=== PATIENT | male | born 1995 | race African-American/Black ===

== ENCOUNTER 2020-05-28 17:47 | Emergency (ER) | payer SELFPAY ==
[2020-05-28] MEDS ORDERED: AZITHROMYCIN 1 GM SUSP PACKET PO ONE (18:41)
[2020-05-28] MEDS ORDERED: CEFTRIAXONE INJ 250 MG VIAL IM ONE (18:41)
[2020-05-28] MEDS ORDERED: LIDOCAINE 1% INJ-PF (10 MG/ML) 30 ML SDV INJ ONE (18:41)
--- NOTE | 2020-05-28 18:47 | ER Document Report ---
HPI - HPI Time Seen by Provider: 05/28/20 18:40 Pain Level: Denies Notes: 25-year-old male presents emergency room for STD evaluation after he found out from his girlfriend that she tested positive with chlamydia. States he was last sexually active with her 2 weeks ago, does report burning with urination and dysuria. Denies ever having an STD prior. Denies any fevers or chills. Eating and drink without any issues. Denies fevers, chills, chest pain,palpitations, shortness of breath, dyspnea, nausea, vomiting, diarrhea, abdominal pain, hematuria,blurred vision, double vision, loss of vision, speech changes, LH, dizziness, syncope, headaches, wheezing, ST, URI, neck pain, weakness, bowel or bladder dysfunction, saddle anesthesia, numbness or tingling in bilateral upper or lower extremities equally, muscle paralysis, weakness in bilateral upper or lower extremities equally or rash. Denies IV drug use. MEDICATIONS: I agree with the patient medications as charted by the RN. ALLERGIES: I agree with the allergies as charted by the RN. PAST MEDICAL HISTORY/PAST SURGICAL HISTORY: Reviewed and agree as charted by RN. SOCIAL HISTORY: Reviewed and agree as charted by RN. FAMILY HISTORY: No significant familial comorbid conditions directly related to patient complaint EXAM: Reviewed vital signs as charted by RN. REVIEW OF SYSTEMS:reviewed vital signs by RN CONSTITUTIONAL : Denies fever, chills, or sweats. Denies recent illness. EENT: Denies eye, ear, throat, or mouth pain or symptoms. Denies nasal or sinus congestion or discharge. Denies throat, tongue, or mouth swelling or difficulty swallowing. CARDIOVASCULAR: Denies chest pain. Denies palpitations or racing or irregular heart beat. Denies ankle edema. RESPIRATORY: Denies cough, cold, or chest congestion. Denies shortness of breath, difficulty breathing, or wheezing. GASTROINTESTINAL: Denies abdominal pain or distention. Denies nausea, vomiting, or diarrhea. Denies blood in vomitus, stools, or per rectum. Denies black, tarry stools. Denies constipation. GENITOURINARY: Reports dysuria, painful urination. denies difficulty urinating, burning, frequency, blood in urine, or discharge. MUSCULOSKELETAL: Denies back or neck pain or stiffness. Denies joint pain or swelling. SKIN: Denies rash, lesions or sores. HEMATOLOGIC : Denies easy bruising or bleeding. LYMPHATIC: Denies swollen, enlarged glands. NEUROLOGICAL: Denies confusion or altered mental status. Denies passing out or loss of consciousness. Denies dizziness or lightheadedness. Denies headache. Denies weakness or paralysis or loss of use of either side. Denies problems with gait or speech. Denies sensory loss, numbness, or tingling. Denies seizures. PSYCHIATRIC: Denies anxiety or stress. Denies depression, suicidal ideation, or homicidal ideation. ALL OTHER SYSTEMS REVIEWED AND NEGATIVE. Dictation was performed using [employer] voice recognition software PHYSICAL EXAMINATION: GENERAL: Well-appearing, well-nourished and in no acute distress. HEAD: Atraumatic, normocephalic. EYES: Pupils equal round and reactive to light, extraocular movements intact, sclera anicteric, conjunctiva are normal. ENT: Nares patent, oropharynx clear without exudates. Moist mucous membranes. NECK: Normal range of motion, supple without lymphadenopathy LUNGS: Breath sounds clear to auscultation bilaterally and equal. No wheezes rales or rhonchi. HEART: Regular rate and rhythm without murmurs ABDOMEN: Soft, nontender, nondistended abdomen. No guarding, no rebound. No masses appreciated. :Pt Refused exam Musculoskeletal: Normal range of motion, no pitting or edema. No cyanosis. NEUROLOGICAL: Cranial nerves grossly intact. Normal speech, normal gait. Normal sensory, motor exams PSYCH: Normal mood, normal affect. SKIN: Warm, Dry, normal turgor, no rashes or lesions noted. Past Medical History - General Information source: Patient - Social History Smoking Status: Current Every Day Smoker Chew tobacco use (# tins/day): No Frequency of alcohol use: Social Drug Abuse: Marijuana Family History: Reviewed & Not Pertinent Vertical Provider Document - CONSTITUTIONAL Agree With Documented VS: Yes Exam Limitations: No Limitations General Appearance: WD/WN Course - Re-evaluation Re-evalutation: 05/28/20 18:47 Afebrile vital stable no distress. Nurses notes reviewed. Patient did give a clean and dirty urine. Since patient had been in contact with somebody who did test positive for chlamydia that he has been sexually active with as well as being symptomatic, patient treated with azithromycin 1 g and Rocephin 250 mg IM for treatment of chlamydia and gonorrhea. Do not engage in sexual intercourse for 7-10 days after treatment. Advised that partner needs to be treated as well so you are not reinfected. Pt verbalizes that understands the risks that come with having unprotected sex. discussed safe sex, using protection. pt was tx'd for G/C at this visit. advised to have protected sex always, go to [facility]CP of the [facility] for further blood testing for HIV, hepatitis C, etc. Pt verbalized understanding of these instructions and agreed with plan of care. - Vital Signs Vital signs: Temp Pulse Resp BP Pulse Ox 98.7 F 92 16 151/77 H 100 05/28/20 18:34 05/28/20 17:52 05/28/20 17:52 05/28/20 17:52 05/28/20 17:52 Discharge - Discharge Clinical Impression: STD exposure Condition: Stable Disposition: HOME, SELF-CARE Additional Instructions: You have been treated with azithromycin 1 g and Rocephin 250 mg IM for treatment of chlamydia and gonorrhea. Do not engage in sexual intercourse for 7- 10 days after treatement. discussed safe sex, using protection. pt was tx'd for G/C at this visit. Advised to have protected sex always, go to [facility]CP [facility] the [facility] for further blood testing for HIV, hepatitis C, etc. Return immediately for any new or worsening symptoms. Follow up with primary care provider, call tomorrow to make followup appointment. Referrals: TIA COMBS MD [ACTIVE STAFF] - Follow up as needed
[2020-05-28 19:06] VITALS: BP 119/64
[2020-05-28 19:30] LABS: APPEARANCE,URINE SLIGHTLY-CLOUDY; BILIRUBIN,URINE NEGATIVE (NEGATIVE); COLOR,URINE YELLOW; GLUCOSE, URINE NEGATIVE (NEGATIVE); KETONES,URINE NEGATIVE (NEGATIVE); LEUKOCYTE ESTERASE,URINE LARGE (NEGATIVE); NITRITE,URINE NEGATIVE (NEGATIVE); PROTEIN,URINE NEGATIVE (NEGATIVE); URINE SPECIFIC GRAVITY 1.018; UROBILINOGEN,URINE NEGATIVE mg/dL (<2.0)
[2020-05-28 20:40] LABS: CHLAM PCR DETECTED (NOT DETECT)
== END 2020-05-28 19:06 | disposition home or self-care (01) ==
LOC: ER 17:47
DX: Z20.2 Contact with and (suspected) exposure to infections with a predominantly sexual mode of transmission (principal); R30.0 Dysuria; F17.200 Nicotine dependence, unspecified, uncomplicated; F12.10 Cannabis abuse, uncomplicated
CPT/HCPCS: 99284; 96372; 81001; 87491; 87591; J3490; Q0144; J0696

== ENCOUNTER 2020-06-26 16:09 | Emergency (ER) | payer SELFPAY ==
[2020-06-26] MEDS ORDERED: CYCLOBENZAPRINE HCL 10 MG TABLET PO ONE (17:00)
--- NOTE | 2020-06-26 17:01 | ER Document Report ---
ED Medical Screen (RME) - General Chief Complaint: Leg Pain Stated Complaint: LEG PAIN Time Seen by Provider: 06/26/20 16:53 Information source: Patient Notes: She presents complaining of bilateral leg pain for the past 6 weeks. Patient states symptoms started after a road trip from [place] 2 months ago. Patient states his pain symptoms have worsened since last night. Patient complains of pain and swelling to the right leg. Patient states he feels palpable lumps to bilateral lower extremities. Patient denies any chest pain or shortness of breath. Patient denies any significant medical problems. I have greeted and performed a rapid initial assessment of this patient. A comprehensive ED assessment and evaluation of the patient, analysis of test results and completion of the medical decision making process will be conducted by additional ED providers. - Related Data Allergies/Adverse Reactions: azithromycin Adverse Reaction (Verified 05/28/20 18:37) Physical Exam - Vital signs Vitals: Temp Pulse Resp BP Pulse Ox 98.8 F 85 16 152/81 H 100 06/26/20 16:42 06/26/20 16:42 06/26/20 16:42 06/26/20 16:42 06/26/20 16:42 - Extremities General lower extremity: Tender - Bilateral lower extremity tenderness from mid thigh distally Course - Vital Signs Vital signs: Temp Pulse Resp BP Pulse Ox 98.8 F 85 16 152/81 H 100 06/26/20 16:42 06/26/20 16:42 06/26/20 16:42 06/26/20 16:42 06/26/20 16:42
[2020-06-26 17:33] LABS: ABSOLUTE EOSINOPHILS # (AUTO) 0.2 10^3/uL (0.0-0.6); ABSOLUTE LYMPHOCYTES (AUTO) 1.4 10^3/uL (0.5-4.7); ABSOLUTE MONOCYTES (AUTO) 0.6 10^3/uL (0.1-1.4); ABSOLUTE NEUT (AUTO) 5.8 10^3/uL (1.7-8.2); BASOPHILS % (AUTO) 0.5 % (0-2); HEMATOCRIT 43.2 % (37.9-51.0); LYMPHOCYTES % (AUTO) 17.7 % (13-45); MEAN CORPUSCULAR HEMOGLOBIN 30.7 pg (27.0-33.4); MEAN CORPUSCULAR HGB CONC 34.8 g/dL (32.0-36.0); MEAN CORPUSCULAR VOLUME 88 fl (80-97); MONOCYTES % (AUTO) 7.2 % (3-13); PLATELET COUNT 287 10^3/uL (150-450); RED CELL DISTRIBUTION WIDTH 13.9 % (11.5-14.0); SEGMENTED NEUTROPHILS % (AUTO) 71.6 % (42-78); TOTAL CELLS COUNTED % (AUTO) 100 %; WHITE BLOOD COUNT 8.1 10^3/uL (4.0-10.5)
[2020-06-26 17:52] LABS: ANION GAP 10 (5-19); BLOOD UREA NITROGEN 12 mg/dL (7-20); CALCIUM 10.1 mg/dL (8.4-10.2); CARBON DIOXIDE 31 mmol/L (22-30); CHLORIDE 98 mmol/L (98-107); CREATINE KINASE 338 U/L (55-170); GLUCOSE 96 mg/dL (75-110)
--- NOTE | 2020-06-26 18:58 | RADIOLOGY REPORT (SQ) ---
EXAM DESCRIPTION: VENOUS BILATERAL LOWER IMAGES COMPLETED DATE/TIME: 06/26/2020 6:46 pm REASON FOR STUDY: LE pain, swelling COMPARISON: None. TECHNIQUE: Dynamic and static soto scale and color images acquired of both lower extremity venous sy stems. Selected spectral images acquired with additional compression and augmentation maneuvers. Imag es stored on PACS. LIMITATIONS: None. FINDINGS: RIGHT LEG COMMON FEMORAL AND FEMORAL: Normal phasicity, compression and augmentation. No visualized echogenic m aterial on soto scale. No defects on color images. POPLITEAL: Normal compression and augmentation. No visualized echogenic material on soto scale. No de fects on color images. CALF VESSELS: Normal compression and augmentation. No visualized echogenic material on soto scale. No defects on color image. GSV AND SSV: Normal compression. No visualized echogenic material on soto scale. No defects on color images. ANY DEEP VENOUS INSUFFICIENCY: Not evaluated. ANY EVIDENCE OF POPLITEAL CYST: No. OTHER: No other significant finding. LEFT LEG COMMON FEMORAL AND FEMORAL: Normal phasicity, compression and augmentation. No visualized echogenic m aterial on soto scale. No defects on color images. POPLITEAL: Normal compression and augmentation. No visualized echogenic material on soto scale. No de fects on color images. CALF VESSELS: Normal compression and augmentation. No visualized echogenic material on soto scale. No defects on color images. GSV AND SSV: Normal compression. No visualized echogenic material on soto scale. No defects on color images. ANY DEEP VENOUS INSUFFICIENCY: Not evaluated. ANY EVIDENCE POPLITEAL CYST: No. OTHER: No other significant finding. IMPRESSION: NO EVIDENCE DVT OR SVT IN EITHER LEG. TECHNICAL DOCUMENTATION: JOB ID: [id number] [employer]- All Rights Reserved Reading location - IP/workstation name: [email or web address]
--- NOTE | 2020-06-26 21:16 | ER Document Report ---
ED General - General Chief Complaint: Leg Pain Stated Complaint: LEG PAIN Time Seen by Provider: 06/26/20 16:53 Mode of Arrival: Ambulatory Information source: Patient Notes: Patient is a healthy 25-year-old -[place] Citizen male who moved here from [place] about a month and half ago. States he has been having severe pain in his legs ever since. No chest pain or shortness of breath. No injury. Works in [employer]. States unable to do his job recently because of pain in his legs. - Related Data Allergies/Adverse Reactions: azithromycin Adverse Reaction (Verified 05/28/20 18:37) Past Medical History - General Information source: Patient - Social History Smoking Status: Current Every Day Smoker Family History: Reviewed & Not Pertinent Review of Systems - Review of Systems Notes: Constitutional: No fevers. No chills. EENT: No eye redness. No eye pain. No ear pain. No sore throat. Cardiovascular: No chest pain. No palpitations. Respiratory: No cough. No shortness of breath. No respiratory distress. Gastrointestinal: No abdominal pain. No nausea, vomiting, or diarrhea. Genitourinary: Atraumatic. No lesions. No pain. No discharge. Musculoskeletal: Positive for bilateral lower extremity pain Skin: No rash or lesions. Lymphatic: No swollen lymph nodes. Neurologic: No headache. No syncope. Psychiatric: No suicidal or homicidal ideation. Physical Exam - Vital signs Vitals: Temp Pulse Resp BP Pulse Ox 98.8 F 85 16 152/81 H 100 06/26/20 16:42 06/26/20 16:42 06/26/20 16:42 06/26/20 16:42 06/26/20 16:42 - Notes Notes: General: Well-developed, well-nourished. In no acute distress. Non-toxic a ppearing. Cardiac: Well-perfused. Regular rate and rhythm. No murmurs, rubs, or gallops. Pulmonary: No respiratory distress. No cyanosis. Bilateral lung fiels are clear to auscultation. Abdominal: Non-distended. Non-rigid. Bowels sounds are present in all four quadrants. No guarding or rebound. HEENT: Head is atraumatic. Conjunctivae not reddened. No tearing. PERRL. EOMI. Orbits atraumatic. No periorbital swelling or erythema. Oropharynx is without erythema, swelling, or exudates. Neck: Supple. No adenopathy. No meningismus. Dermatologic: Warm with good turgor. No rash. Atraumatic. Chest: Atraumatic. No chest wall tenderness to palpation. Musculoskeletal: Moves all extremities well. No range of motion deficits. no muscular or joint tenderness. No paraspinal muscle tenderness. no midline spinal tenderness or step-off. Bilateral lower extremities examined. No swelling. No redness. No lesions. Diffuse nonspecific tenderness. Distal neurovascular exam intact Genitourinary: Examination deferred Neurologic: No gross neurologic deficits. Psychiatric: Normal mood. Course - Re-evaluation Re-evalutation: 06/26/20 21:14 Reviewed labs. Reviewed ultrasound. Will treat symptomatically. - Vital Signs Vital signs: Temp Pulse Resp BP Pulse Ox 98.8 F 85 16 152/81 H 100 06/26/20 16:42 06/26/20 16:42 06/26/20 16:42 06/26/20 16:42 06/26/20 16:42 - Laboratory Result Diagrams: 06/26/20 17:05 06/26/20 17:05 Laboratory results interpreted by me: 06/26/20 17:05 Carbon Dioxide 31 H Creatine Kinase 338 H Discharge - Discharge Clinical Impression: Elevated blood pressure reading Leg pain Qualifiers: Laterality: bilateral Qualified Code(s): M79.604 - Pain in right leg; M79.605 - Pain in left leg Condition: Good Disposition: HOME, SELF-CARE Instructions: Myalagia (Muscle Pain) (OM) Prescriptions: Indomethacin [Indocin 25 Mg Capsule] 25 mg PO Q6HP PRN #20 capsule PRN Reason: Forms: Return to Work Referrals: GEOVANNY FOWLER DO [NO LOCAL MD] - Follow up as needed
[2020-06-26 21:33] VITALS: BP 132/79
== END 2020-06-26 21:32 | disposition home or self-care (01) ==
LOC: ER 16:09
DX: M79.604 Pain in right leg (principal); M79.605 Pain in left leg; R03.0 Elevated blood-pressure reading, without diagnosis of hypertension; F17.200 Nicotine dependence, unspecified, uncomplicated
CPT/HCPCS: 36415; 80048; 82550; 85025; 93970; 99285

== ENCOUNTER 2020-07-06 13:47 | Emergency (ER) | payer SELFPAY ==
[2020-07-06 13:53] VITALS: BP 129/74
--- NOTE | 2020-07-06 14:21 | ER Document Report ---
ED GI/ - General Chief Complaint: Penile Pain Stated Complaint: PENILE PAIN Time Seen by Provider: 07/06/20 14:13 Notes: CHIEF COMPLAINT: Penile lesions HPI: 25-year-old male presenting because he is concerned he still has an STD. He was treated for gonorrhea chlamydia per the records over 5 weeks ago. States he had tested positive for both chlamydia and gonorrhea, did receive Zithromax and Rocephin no longer has penile discharge. Has not been sexually active since being treated. He reports that he is circumcised. He reports that he is concerned about swelling in the area where he was circumcised. No dysuria no testicular pain ROS: See HPI - all other systems were reviewed and are otherwise negative Constitutional: no fever GI: no vomiting, no diarrhea, no abdominal pain : no dysuria Integumentary: + rash Allergy: no hives MEDICATIONS: I agree with the patient medications as charted by the RN. ALLERGIES: I agree with the allergies as charted by the RN. PAST MEDICAL HISTORY/PAST SURGICAL HISTORY: Reviewed and agree as charted by RN. SOCIAL HISTORY: Reviewed and agree as charted by RN. FAMILY HISTORY: No significant familial comorbid conditions directly related to patient complaint EXAM: Reviewed vital signs as charted by RN. CONSTITUTIONAL: Alert and oriented and responds appropriately to questions. Well-appearing; well-nourished HEAD: Normocephalic; atraumatic EYES: Conjunctivae clear, sclerae non-icteric ENT: normal nose; no rhinorrhea; moist mucous membranes NECK: Supple without meningismus CARD: symmetric distal pulses RESP: Normal chest excursion without splinting or tachypnea ABD/GI: Normal bowel sounds; non-distended; soft, non-tender, no rebound, no guarding; no palpable organomegaly or masses. : Circumcised male. No visible urethral discharge. No visible lesions. Testicles are descended and bilaterally nontender. No palpable masses. No inguinal or scrotal hernias. Patient has slight edema at the base of the circumcision area over the remnant of the foreskin without significant erythema. No blistering suggesting herpes BACK: The back appears normal and is non-tender to palpation, there is no CVA tenderness EXT: Normal ROM in all joints; no cyanosis, no effusions, no edema SKIN: Normal color for age and race; warm; dry; good turgor; no acute lesions noted NEURO: Moves all extremities equally; Motor and sensory function intact PSYCH: The patient's mood and manner are appropriate. Grooming and personal hygiene are appropriate. MDM: 25-year-old male with likely balanitis at the remnant of the foreskin. We will have him use Lotrisone cream and follow-up with the health department - Related Data Allergies/Adverse Reactions: No Known Allergies Allergy (Verified 07/06/20 14:19) Past Medical History - Social History Smoking Status: Unknown if Ever Smoked Family History: Reviewed & Not Pertinent Physical Exam - Vital signs Vitals: Temp Pulse Resp BP Pulse Ox 97.8 F 111 H 18 129/74 H 95 07/06/20 13:52 07/06/20 13:52 07/06/20 13:52 07/06/20 13:52 07/06/20 13:52 Course - Re-evaluation Re-evalutation: 07/06/20 14:20 Patient declines being retested for gonorrhea chlamydia stating that he feels that his symptoms have resolved - Vital Signs Vital signs: Temp Pulse Resp BP Pulse Ox 97.8 F 111 H 18 129/74 H 95 07/06/20 13:52 07/06/20 13:52 07/06/20 13:52 07/06/20 13:52 07/06/20 13:52 Discharge - Discharge Clinical Impression: Balanitis Condition: Stable Disposition: HOME, SELF-CARE Instructions: Jorge ([facility]) Additional Instructions: Use the cream as prescribed for 1 week, follow-up with your primary care provider or the health department for reevaluation Prescriptions: Clotrimazole/Betamethasone Dip [Lotrisone Cream 15 gm] 1 applic TP BID 7 Days #1 tube
== END 2020-07-06 14:19 | disposition home or self-care (01) ==
LOC: ER 13:47
DX: N48.1 Balanitis (principal)
CPT/HCPCS: 99283

== ENCOUNTER 2020-07-08 15:01 | Emergency (ER) | payer SELFPAY ==
--- NOTE | 2020-07-08 15:19 | ER Document Report ---
ED Medical Screen (RME) - General Chief Complaint: Abdominal Pain Stated Complaint: RIGHT LEG PAIN Time Seen by Provider: 07/08/20 15:13 Mode of Arrival: Wheelchair Information source: Patient Notes: 25-year-old presented to ED for complaint of pain from his right lower abdomen down to his foot. When I palpate his right lower abdomen he states it is extremely painful. He states this is been hurting off and on for a month. He states it also hurts in the leg and the knee and the foot. He denies any fever denies any nausea or vomiting. Patient is alert oriented respirations regular nonlabored speaking in full sentences. I have greeted and performed a rapid initial assessment of this patient. A comprehensive ED assessment and evaluation of the patient, analysis of test results and completion of medical decision making process will be conducted by an additional ED providers. - Related Data Allergies/Adverse Reactions: No Known Allergies Allergy (Verified 07/08/20 15:14) Past Medical History - Medical History Medical History: Negative - Past Medical History Cardiac Medical History: Reports: None Pulmonary Medical History: Reports: None EENT Medical History: Reports: None Endocrine Medical History: Reports: None Renal/ Medical History: Reports: None Malignancy Medical History: Reports None GI Medical History: Reports: None Musculoskeltal Medical History: Reports None Skin Medical History: Reports None Psychiatric Medical History: Reports: None Traumatic Medical History: Reports: None Infectious Medical History: Reports: None Surgical Hx: Negative Past Surgical History: Reports: None Physical Exam - Vital signs Vitals: Temp Pulse Resp BP Pulse Ox 99.2 F 100 18 145/85 H 100 07/08/20 15:07 07/08/20 15:07 07/08/20 15:07 07/08/20 15:07 07/08/20 15:07 Course - Vital Signs Vital signs: Temp Pulse Resp BP Pulse Ox 99.2 F 100 18 145/85 H 100 07/08/20 15:07 07/08/20 15:07 07/08/20 15:07 07/08/20 15:07 07/08/20 15:07
[2020-07-08 15:46] LABS: ABSOLUTE EOSINOPHILS # (AUTO) 0.1 10^3/uL (0.0-0.6); ABSOLUTE LYMPHOCYTES (AUTO) 1.3 10^3/uL (0.5-4.7); ABSOLUTE MONOCYTES (AUTO) 1.2 10^3/uL (0.1-1.4); ABSOLUTE NEUT (AUTO) 10.9 10^3/uL (1.7-8.2); BASOPHILS % (AUTO) 0.2 % (0-2); EOSINOPHILS % (AUTO) 0.8 % (0-6); HEMATOCRIT 43.2 % (37.9-51.0); HEMOGLOBIN 14.8 g/dL (13.5-17.0); LYMPHOCYTES % (AUTO) 9.7 % (13-45); MEAN CORPUSCULAR HEMOGLOBIN 29.9 pg (27.0-33.4); MEAN CORPUSCULAR HGB CONC 34.3 g/dL (32.0-36.0); MEAN CORPUSCULAR VOLUME 87 fl (80-97); MONOCYTES % (AUTO) 8.6 % (3-13); PLATELET COUNT 435 10^3/uL (150-450); RED BLOOD COUNT 4.95 10^6/uL (4.35-5.55); RED CELL DISTRIBUTION WIDTH 13.6 % (11.5-14.0); SEGMENTED NEUTROPHILS % (AUTO) 80.7 % (42-78); TOTAL CELLS COUNTED % (AUTO) 100 %; WHITE BLOOD COUNT 13.5 10^3/uL (4.0-10.5)
[2020-07-08 16:07] LABS: ALBUMIN 4.3 g/dL (3.5-5.0); ALKALINE PHOSPHATASE 103 U/L (38-126); ANION GAP 11 (5-19); ASPARTATE AMINO TRANSFERASE 30 U/L (17-59); BILIRUBIN,DIRECT 0.2 mg/dL (0.0-0.4); BLOOD UREA NITROGEN 11 mg/dL (7-20); CARBON DIOXIDE 28 mmol/L (22-30); CHLORIDE 98 mmol/L (98-107); GLUCOSE 114 mg/dL (75-110); POTASSIUM 4.4 mmol/L (3.6-5.0)
[2020-07-08 16:08] LABS: APPEARANCE,URINE CLEAR; BILIRUBIN,URINE NEGATIVE (NEGATIVE); COLOR,URINE AMBER; GLUCOSE, URINE NEGATIVE (NEGATIVE); KETONES,URINE 20 mg/dL (NEGATIVE); LEUKOCYTE ESTERASE,URINE NEGATIVE (NEGATIVE); NITRITE,URINE NEGATIVE (NEGATIVE); PROTEIN,URINE 100 mg/dL (NEGATIVE); URINE SPECIFIC GRAVITY 1.029
[2020-07-08 16:21] LABS: URINE AMPHETAMINES SCREEN NEGATIVE; URINE BARBITURATES SCREEN NEGATIVE; URINE BENZODIAZEPINES SCREEN NEGATIVE; URINE COCAINE SCREEN NEGATIVE; URINE METHADONE SCREEN NEGATIVE; URINE PHENCYCLIDINE SCREEN NEGATIVE
[2020-07-08 16:26] LABS: URINE MARIJUANA (THC) SCREEN UNCONFIRMED POSITIVE
--- NOTE | 2020-07-08 17:31 | RADIOLOGY REPORT (SQ) ---
EXAM DESCRIPTION: CT ABD/PELVIS WITH IV ONLY IMAGES COMPLETED DATE/TIME: 07/08/2020 4:59 pm REASON FOR STUDY: rlq pain COMPARISON: None. TECHNIQUE: CT scan of the abdomen and pelvis performed using helical scanning technique with dynamic intravenous contrast injection. No oral contrast. Images reviewed with lung, soft tissue, and bone windows. Reconstructed coronal and sagittal MPR images reviewed. Delayed images for evaluation of the urinary system also acquired. All images stored on PACS. All CT scanners at this facility use dose modulation, iterative reconstruction, and/or weight based d osing when appropriate to reduce radiation dose to as low as reasonably achievable (ALARA). [facility]: Dose Right [facility]: CareDose [facility]: Dose Right [facility]: Teradose 4D [facility]: Lightswitch CONTRAST TYPE AND DOSE: contrast/concentration: Isovue 350.00 mmol/ml; Total Contrast Delivered: 83. 0 ml; Total Saline Delivered: 41.5 ml RENAL FUNCTION: None required. The patient is less than 50 years old. RADIATION DOSE: CT Rad equipment meets quality standard of care and radiation dose reduction techniq ues were employed. CTDIvol: 4.8 - 5.0 mGy. DLP: 510 mGy-cm.. LIMITATIONS: None. FINDINGS: LOWER CHEST: No significant findings. No nodules or infiltrates. LIVER: Normal size. No masses. No dilated ducts. SPLEEN: Normal size. No focal lesions. PANCREAS: No masses. No significant calcifications. No adjacent inflammation or peripancreatic fluid collections. Pancreatic duct not dilated. GALLBLADDER: No identified stones by CT criteria. No inflammatory changes to suggest cholecystitis. ADRENAL GLANDS: No significant masses or asymmetry. RIGHT KIDNEY AND URETER: No solid masses. No significant calcifications. No hydronephrosis or hyd roureter. LEFT KIDNEY AND URETER: No solid masses. No significant calcifications. No hydronephrosis or hydr oureter. AORTA AND VESSELS: No aneurysm. No dissection. Renal arteries, SMA, celiac without stenosis. RETROPERITONEUM: No retroperitoneal adenopathy, hemorrhage or masses. BOWEL AND PERITONEAL CAVITY: No masses or inflammatory changes. No free fluid or peritoneal masses. APPENDIX: Normal. PELVIS: No mass. No free fluid. Normal bladder. ABDOMINAL WALL: No masses. No hernias. BONES: No significant or acute findings. OTHER: No other significant finding. IMPRESSION: NO SIGNIFICANT OR ACUTE FINDING IN THE ABDOMEN OR PELVIS ON CT SCAN WITH IV CONTRAST. TECHNICAL DOCUMENTATION: JOB ID: [id number] Quality ID # [id number]: Final reports with documentation of one or more dose reduction techniques (e.g., Au tomated exposure control, adjustment of the mA and/or kV according to patient size, use of iterative reconstruction technique) 2010 [employer]- All Rights Reserved Reading location - IP/workstation name: [email or web address]
--- NOTE | 2020-07-08 17:59 | ER Document Report ---
ED General - General Chief Complaint: Abdominal Pain Stated Complaint: RIGHT LEG PAIN Time Seen by Provider: 07/08/20 15:13 Mode of Arrival: Wheelchair Information source: Patient - HPI Notes: Patient complains of right groin pain right abdominal pain as well as right leg pain. He states that the pain appears to start in the right inguinal area and radiates up into the abdomen as well as down his leg. He states it is constant. He states is been there for several weeks. It is worse with movement and better with rest. Patient states has had no vomiting no diarrhea. He has had a decreased appetite. He has had some low-grade fever and chills at home. The pain in the right inguinal area is severe and he has noticed a mass there. - Related Data Allergies/Adverse Reactions: shellfish derived Allergy (Verified 07/08/20 16:49) Past Medical History - General Information source: Patient - Social History Smoking Status: Current Every Day Smoker Chew tobacco use (# tins/day): No Frequency of alcohol use: Social Drug Abuse: Marijuana Family History: Reviewed & Not Pertinent Patient has homicidal ideation: No - Medical History Medical History: Negative - Past Medical History Cardiac Medical History: Reports: None Pulmonary Medical History: Reports: None EENT Medical History: Reports: None Endocrine Medical History: Reports: None Renal/ Medical History: Reports: None Malignancy Medical History: Reports None GI Medical History: Reports: None Musculoskeletal Medical History: Reports None Skin Medical History: Reports None Psychiatric Medical History: Reports: None Traumatic Medical History: Reports: None Infectious Medical History: Reports: None Surgical Hx: Negative Past Surgical History: Reports: None Review of Systems - Review of Systems Constitutional: Chills, Malaise Cardiovascular: denies: Chest pain, Palpitations Respiratory: denies: Cough, Short of breath -: Yes All other systems reviewed and negative Physical Exam - Vital signs Vitals: Temp Pulse Resp BP Pulse Ox 99.2 F 100 18 145/85 H 100 07/08/20 15:07 07/08/20 15:07 07/08/20 15:07 07/08/20 15:07 07/08/20 15:07 Interpretation: Normal - General General appearance: Appears well, Alert - HEENT Head: Normocephalic, Atraumatic Eyes: Normal Pupils: PERRL - Respiratory Respiratory status: No respiratory distress Chest status: Nontender Breath sounds: Normal Chest palpation: Normal - Cardiovascular Rhythm: Regular Heart sounds: Normal auscultation Murmur: No - Abdominal Inspection: Normal Distension: No distension Bowel sounds: Normal Tenderness: Nontender Organomegaly: No organomegaly - Back Back: Normal, Nontender - Extremities General upper extremity: Normal inspection, Nontender, Normal color, Normal ROM, Normal temperature General lower extremity: Normal inspection, Tender - Inspection of the right lower extremity is unremarkable other than the inguinal area. Patient however does have tenderness to palpation of the foot the knee as well as the thigh and calf. Inspection of these areas though is unremarkable for any type of swelling or induration or abnormality. Patient does have a tender swollen mass in the right inguinal area that appears more consistent with possible lymphadenopathy than it does with hernia., Normal color, Normal ROM, Normal temperature, Normal weight bearing. No: Milton's sign - Neurological Neuro grossly intact: Yes Cognition: Normal Orientation: AAOx4 [place] Coma Scale Eye Opening: Spontaneous [place] Coma Scale Verbal: Oriented [place] Coma Scale Motor: Obeys Commands [place] Coma Scale Total: 15 Speech: Normal Motor strength normal: LUE, RUE, LLE, RLE Sensory: Normal - Psychological Associated symptoms: Normal affect, Normal mood - Skin Skin Temperature: Warm Skin Moisture: Dry Skin Color: Normal Course - Re-evaluation Re-evalutation: 07/08/20 17:58 Patient presents with right inguinal pain. A CT of the abdomen is unremarkable. Exam does not appear consistent with hernia although remains a possibility. An ultrasound will be obtained. Patient did recently have a sex transmitted disease and it is possible this is lymphadenopathy of the right inguinal area. At this time an ultrasound is pending. Patient was appropriately treated for the STDs and the previous visit. Care turned over to Dr. Horan who will follow up on Ultrasound 07/08/20 18:07 - Vital Signs Vital signs: Temp Pulse Resp BP Pulse Ox 99.2 F 100 18 145/85 H 100 07/08/20 15:07 07/08/20 15:07 07/08/20 15:07 07/08/20 15:07 07/08/20 15:07 - Laboratory Result Diagrams: 07/08/20 15:27 07/08/20 15:27 Laboratory results interpreted by me: 07/08/20 07/08/20 07/08/20 15:27 15:27 15:36 WBC 13.5 H Lymph % (Auto) 9.7 L Absolute Neuts (auto) 10.9 H Seg Neutrophils % 80.7 H Glucose 114 H Urine Protein 100 H Urine Ketones 20 H Urine Urobilinogen 4.0 H - Diagnostic Test Radiology reviewed: Image reviewed, Reports reviewed Discharge - Discharge Clinical Impression: Lymphadenopathy Condition: Stable Disposition: OTHER
--- NOTE | 2020-07-08 18:29 | RADIOLOGY REPORT (SQ) ---
EXAM DESCRIPTION: U/S NON-OB PELVIS LTD W/O DOP IMAGES COMPLETED DATE/TIME: 07/08/2020 6:15 pm REASON FOR STUDY: right inguinal mass/pain COMPARISON: None. TECHNIQUE: Dynamic and static grayscale images acquired of the pelvis via transabdominal approach an d recorded on PACS. Additional selected color Doppler and spectral images recorded. LIMITATIONS: None. FINDINGS: Sonographic imaging is performed in the right groin at the site of pain and tenderness. T here is thickening and hyperemia of the spermatic cord. IMPRESSION: Vasitis/funiculitis on the right. TECHNICAL DOCUMENTATION: JOB ID: [id number] 2010 [employer]- All Rights Reserved Rev-01/21 Reading location - IP/workstation name: [email or web address]
[2020-07-08] MEDS ORDERED: SULFAMETHOXAZOLE/TRIMETHOPRIM 800-160 MG TABLET PO ONE (19:40)
--- NOTE | 2020-07-08 20:00 | ER Document Report ---
Doctor's Note Notes: 07/08/20 20:22 Patient was signed out to me pending ultrasound. He appears well on exam. He is on room air. No acute distress. Full range of motion of lower extremities. Patient's ultrasound shows a right vasitis/funiculitis. This is in the area of his pain. I discussed with urology, Dr. Molina. He recommended that we put him on a couple weeks of antibiotics. He recommended Bactrim as Levaquin has a high resistance rate. Patient was treated for gonorrhea and chlamydia at his previous visit. His urine culture was not performed at that time but his urinalysis was suspicious for an infection which is why he recommended Bactrim. I did send another gonorrhea chlamydia urine today. He will be called with the results to see if he needs any other antibiotics. Patient is very agreeable to this plan. He was instructed to follow-up with urology and return for any worsening symptoms.
[2020-07-08 20:10] VITALS: BP 143/79
[2020-07-08 21:43] LABS: CHLAM PCR NOT DETECTED (NOT DETECT)
== END 2020-07-08 20:10 | disposition other institution (70) ==
LOC: ER 15:01
DX: N49.1 Inflammatory disorders of spermatic cord, tunica vaginalis and vas deferens (principal); R59.1 Generalized enlarged lymph nodes; R63.0 Anorexia; R68.83 Chills (without fever); R53.81 Other malaise; F17.200 Nicotine dependence, unspecified, uncomplicated; F12.10 Cannabis abuse, uncomplicated; Z91.013 Allergy to seafood; Z20.2 Contact with and (suspected) exposure to infections with a predominantly sexual mode of transmission
CPT/HCPCS: 36415; 74177; 76857; 80053; 80307; 81001; 83690; 85025; 87086; 87491; 87591; 99285

== ENCOUNTER 2020-08-26 13:20 | Emergency (ER) | payer SELFPAY ==
[2020-08-26 14:13] LABS: ABSOLUTE EOSINOPHILS # (AUTO) 0.4 10^3/uL (0.0-0.6); ABSOLUTE MONOCYTES (AUTO) 1.3 10^3/uL (0.1-1.4); ABSOLUTE NEUT (AUTO) 16.4 10^3/uL (1.7-8.2); BASOPHILS % (AUTO) 0.2 % (0-2); HEMATOCRIT 34.3 % (37.9-51.0); HEMOGLOBIN 11.5 g/dL (13.5-17.0); LYMPHOCYTES % (AUTO) 5.4 % (13-45); MEAN CORPUSCULAR HEMOGLOBIN 27.7 pg (27.0-33.4); MEAN CORPUSCULAR HGB CONC 33.4 g/dL (32.0-36.0); MEAN CORPUSCULAR VOLUME 83 fl (80-97); MONOCYTES % (AUTO) 6.6 % (3-13); PLATELET COUNT 572 10^3/uL (150-450); RED BLOOD COUNT 4.15 10^6/uL (4.35-5.55); RED CELL DISTRIBUTION WIDTH 14.6 % (11.5-14.0); SEGMENTED NEUTROPHILS % (AUTO) 85.8 % (42-78); TOTAL CELLS COUNTED % (AUTO) 100 %; WHITE BLOOD COUNT 19.2 10^3/uL (4.0-10.5)
[2020-08-26 14:33] LABS: ALKALINE PHOSPHATASE 333 U/L (38-126); ANION GAP 9 (5-19); ASPARTATE AMINO TRANSFERASE 74 U/L (17-59); BILIRUBIN,TOTAL 1.3 mg/dL (0.2-1.3); BLOOD UREA NITROGEN 8 mg/dL (7-20); CARBON DIOXIDE 30 mmol/L (22-30); CHLORIDE 99 mmol/L (98-107); CREATINE KINASE 38 U/L (55-170); GLUCOSE 97 mg/dL (75-110); POTASSIUM 4.1 mmol/L (3.6-5.0); TOTAL PROTEIN 6.8 g/dL (6.3-8.2)
[2020-08-26 14:45] LABS: CREATINE KINASE MB 0.28 ng/mL (<4.55)
[2020-08-26 14:47] LABS: TROPONIN I < 0.012 ng/mL
--- NOTE | 2020-08-26 14:52 | RADIOLOGY REPORT (SQ) ---
EXAM DESCRIPTION: CHEST SINGLE VIEW IMAGES COMPLETED DATE/TIME: 08/26/2020 2:35 pm REASON FOR STUDY: cp COMPARISON: None. EXAM PARAMETERS: NUMBER OF VIEWS: One view. TECHNIQUE: An AP view of the chest was obtained. RADIATION DOSE: NA LIMITATIONS: None. FINDINGS: LUNGS AND PLEURA: No consolidation, pleural effusion or pneumothorax. MEDIASTINUM AND HILAR STRUCTURES: No mediastinal or hilar contour abnormality. HEART AND VASCULAR STRUCTURES: The cardiac silhouette and pulmonary vasculature are within normal scruggs its. BONES: No acute findings. HARDWARE: None in the chest. OTHER: No other finding. IMPRESSION: No acute cardiopulmonary process. TECHNICAL DOCUMENTATION: JOB ID: [id number] 2010 [employer]- All Rights Reserved Reading location - IP/workstation name: [email or web address]
--- NOTE | 2020-08-26 16:00 | ER Document Report ---
ED General <GEOVANNY LYN - Last Filed: 08/26/20 15:55> <ROBBIN HORAN - Last Filed: 08/26/20 20:23> - General Chief Complaint: Chest Pain Stated Complaint: CHEST PAIN Time Seen by Provider: 08/26/20 13:26 - HPI Notes: Chief complaint: Chest pain and bilateral calf pain History of present illness: 25-year-old male visiting here from [facility] seen previously last month when he had epididymitis treated here with oral antibiotics and since that time he complains of bilateral calf pain. He denies any trauma. He also reports for the last several days that he has had some di scomfort in his chest sharp and fleeting not consistently pleuritic. This is been bilateral. He denies any cough, shortness of breath or hemoptysis. He is a smoker. Denies any history of cardiac disease, hypertension, diabetes mellitus, hyperlipidemia, drug abuse or personal or family history of thromboembolic disease. (GEOVANNY LYN) - Related Data Allergies/Adverse Reactions: shellfish derived Allergy (Verified 07/08/20 16:49) Past Medical History - General Information source: Patient - Social History Smoking Status: Current Some Day Smoker Frequency of alcohol use: None Drug Abuse: None Family History: Reviewed & Not Pertinent - Past Medical History Cardiac Medical History: Reports: None Denies: Hx DVT, Hx Pulmonary Embolism Pulmonary Medical History: Reports: None Endocrine Medical History: Denies: Hx Diabetes Mellitus Type 1, Hx Diabetes Mellitus Type 2 Surgical Hx: Negative <GEOVANNY LYN - Last Filed: 08/26/20 15:55> Review of Systems <GEOVANNY LYN - Last Filed: 08/26/20 15:55> - Review of Systems Notes: Constitutional: Denies fever. HENT: As per HPI Eyes: Negative for drainage. Cardiovascular: As per HPI. Respiratory: Denies cough or sputum production. As per HPI. Gastrointestinal: No vomiting or diarrhea. Genitourinary: Urinating normally. Musculoskeletal: As per HPI. Skin: Negative for rash. Neurological: Negative. 10 point ROS negative except as marked above and in HPI. (GEOVANNY LYN) Physical Exam <GEOVANNY LYN - Last Filed: 08/26/20 15:55> - Vital signs Vitals: Pulse Ox 100 08/26/20 13:39 - Notes Notes: GENERAL: Slender male approximately stated age appearing in no acute distress. SKIN: Good turgor no rashes. HEAD: Normocephalic atraumatic. EYES: PERRLA. EOMI. Conjunctivae and sclerae clear. EARS: CANALS AND TMS CLEAR. NOSE: CLEAR. MOUTH: Moist mucosa. Good dentition. No stridor or edema. No drooling. NECK: Supple. No masses or thyromegaly. No adenopathy. Carotids 2+ without bruits. No JVD. BACK: Symmetrical without tenderness. CHEST: Respirations unlabored. Breath sounds clear and symmetrical. HEART: Regular rhythm. No murmur gallop or rub. ABDOMEN: Soft nontender without masses, organomegaly or rebound. Bowel sounds normally active. No bruits. GENITALIA: Deferred. EXTREMITIES: Bilateral calf tenderness without any visible swelling, redness or palpable cords. Homans' sign is negative. No edema. No calf tenderness. Cap refill less than 1.5 seconds. Dorsalis pedis and posterior tibial pulses 3+ and symmetrical. NEUROLOGICAL: GCS 15. Alert and oriented x3. Fluent speech. Cranial nerves II through XII intact. Sensorimotor and cerebellar normal. Normal tone. PSYCHIATRIC: Appropriate affect. (GEOVANNY LYN) Course - Laboratory Results Result Diagrams: 08/26/20 13:46 08/26/20 13:46 Critical Laboratory Results Reviewed: Yes Attending or Supervising Physician who Reviewed Labs: GEOVANNY LYN - Radiology Results Critical Radiology Results Reviewed: Yes Attending or Supervising Physician who Reviewed Radiology: GEOVANNY LYN <GEOVANNY LYN - Last Filed: 08/26/20 15:55> - Laboratory Results Result Diagrams: 08/26/20 13:46 08/26/20 13:46 <ROBBIN HORAN - Last Filed: 08/26/20 20:23> - Re-evaluation Re-evalutation: 08/26/20 16:03 Venous Doppler studies both lower extremities reported as negative. Twelve-lead EKG showed no acute changes. Normal chest x-ray per radiologist. D-dimer is elevated. Urine drug screen is pending. CTA of chest has been requested. Further care of patient is turned over to Dr. Horan at this time. (GEOVANNY LYN) - Vital Signs Vital signs: Temp Pulse Resp BP Pulse Ox 98.9 F 12 158/95 H 99 08/26/20 14:00 08/26/20 19:00 08/26/20 15:00 08/26/20 19:00 - Laboratory Results Laboratory Results Interpreted: 08/26/20 08/26/20 08/26/20 13:46 13:46 13:46 WBC 19.2 H RBC 4.15 L Hgb 11.5 L Hct 34.3 L RDW 14.6 H Plt Count 572 H Lymph % (Auto) 5.4 L Absolute Neuts (auto) 16.4 H Seg Neutrophils % 85.8 H D-Dimer 1.34 H Direct Bilirubin 1.0 H AST 74 H ALT 113 H Alkaline Phosphatase 333 H Creatine Kinase 38 L Albumin 3.0 L Urine Protein Urine Urobilinogen 08/26/20 15:54 WBC RBC Hgb Hct RDW Plt Count Lymph % (Auto) Absolute Neuts (auto) Seg Neutrophils % D-Dimer Direct Bilirubin AST ALT Alkaline Phosphatase Creatine Kinase Albumin Urine Protein 30 H Urine Urobilinogen 4.0 H - Radiology Results Radiology Results Interpreted: 08/26/20 16:02 Chest X-Ray 08/26/20 14:23 IMPRESSION: No acute cardiopulmonary process. (GEOVANNY LYN) - EKG Interpretation by Me Additional EKG results interpreted by me: 08/26/20 16:03 Twelve-lead EKG reviewed by me contemporaneously: 1348 hrs. Indication for study: Chest pain Rhythm: Normal sinus Rate: 88 Intervals: Normal QRS axis: [address]/T wave changes: None Comparison with prior tracing: None Interpretation: Normal tracing (GEOVANNY LYN) Discharge <GEOVANNY LYN - Last Filed: 08/26/20 15:55> <ROBBIN HORAN - Last Filed: 08/26/20 20:23> - Discharge Clinical Impression: Bilateral leg pain Chest pain Qualifiers: Chest pain type: unspecified Qualified Code(s): R07.9 - Chest pain, unspecified Condition: Stable Disposition: HOME, SELF-CARE Instructions: Leg Pain Nonspecific ([facility]), Chest Pain of Unclear Cause ([facility]) Additional Instructions: Your work-up today is reassuring. You did have a finding of a possible early pneumnia on your chest CT. You will be given antibiotics. You can take Tylenol and ibuprofen for leg pain. You did not have any evidence of clots. Please follow-up with the family doctor provided. Please return to the ER immediately for any worsening symptoms. Prescriptions: Azithromycin [Zithromax 250 mg Tablet] 250 mg PO ASDIR PRN #6 tablet PRN Reason: Referrals: LUCIA CONLEY MD [ACTIVE STAFF] - Follow up in 3-5 days
--- NOTE | 2020-08-26 16:20 | RADIOLOGY REPORT (SQ) ---
EXAM DESCRIPTION: VENOUS BILATERAL LOWER IMAGES COMPLETED DATE/TIME: 08/26/2020 4:04 pm REASON FOR STUDY: bilateral calf pain; r/o DVT COMPARISON: None. TECHNIQUE: Dynamic and static soto scale and color images acquired of both lower extremity venous sy stems. Selected spectral images acquired with additional compression and augmentation maneuvers. Imag es stored on PACS. LIMITATIONS: None. FINDINGS: RIGHT LEG COMMON FEMORAL AND FEMORAL: Normal phasicity, compression and augmentation. No visualized echogenic m aterial on soto scale. No defects on color images. POPLITEAL: Normal compression and augmentation. No visualized echogenic material on soto scale. No de fects on color images. CALF VESSELS: Normal compression and augmentation. No visualized echogenic material on soot scale. No defects on color image. GSV AND SSV: Normal compression. No visualized echogenic material on soto scale. No defects on color images. ANY DEEP VENOUS INSUFFICIENCY: No. ANY EVIDENCE OF POPLITEAL CYST: No. OTHER: No other findings. LEFT LEG COMMON FEMORAL AND FEMORAL: Normal phasicity, compression and augmentation. No visualized echogenic m aterial on soto scale. No defects on color images. POPLITEAL: Normal compression and augmentation. No visualized echogenic material on soto scale. No de fects on color images. CALF VESSELS: Normal compression and augmentation. No visualized echogenic material on soto scale. No defects on color images. GSV AND SSV: Normal compression. No visualized echogenic material on soto scale. No defects on color images. ANY DEEP VENOUS INSUFFICIENCY: No. ANY EVIDENCE POPLITEAL CYST: No. OTHER: No other findings. IMPRESSION: NO EVIDENCE OF DVT OR SVT IN EITHER LEG. TECHNICAL DOCUMENTATION: JOB ID: [id number] [employer]- All Rights Reserved Reading location - IP/workstation name: [email or web address]
[2020-08-26 16:35] LABS: APPEARANCE,URINE CLEAR; BILIRUBIN,URINE NEGATIVE (NEGATIVE); COLOR,URINE AMBER; GLUCOSE, URINE NEGATIVE (NEGATIVE); KETONES,URINE NEGATIVE (NEGATIVE); PROTEIN,URINE 30 mg/dL (NEGATIVE); URINE SPECIFIC GRAVITY 1.023
[2020-08-26 16:54] LABS: URINE AMPHETAMINES SCREEN NEGATIVE; URINE BARBITURATES SCREEN NEGATIVE; URINE BENZODIAZEPINES SCREEN NEGATIVE; URINE COCAINE SCREEN NEGATIVE; URINE METHADONE SCREEN NEGATIVE; URINE PHENCYCLIDINE SCREEN NEGATIVE
[2020-08-26 17:00] LABS: URINE MARIJUANA (THC) SCREEN UNCONFIRMED POSITIVE
--- NOTE | 2020-08-26 17:27 | RADIOLOGY REPORT (SQ) ---
EXAM DESCRIPTION: CTA CHEST IMAGES COMPLETED DATE/TIME: 08/26/2020 5:01 pm REASON FOR STUDY: CP, elevated d-dimer COMPARISON: None. TECHNIQUE: CT scan of the chest performed using helical scanning technique with dynamic intravenous contrast injection. Images reviewed with lung, soft tissue and bone windows. Reconstructed coronal and sagittal MPR images reviewed. Additional 3 dimensional post-processing performed to develop Maximal Intensity Projection images (DC P). All images stored on PACS. All CT scanners at this facility use dose modulation, iterative reconstruction, and/or weight based d osing when appropriate to reduce radiation dose to as low as reasonably achievable (ALARA). [facility]: Dose Right [facility]: CareDose [facility]: Dose Right [facility]: Teradose 4D [facility]: Affinio CONTRAST TYPE AND DOSE: contrast/concentration: Isovue 350.00 mmol/ml; Total Contrast Delivered: 150 .0 ml; Total Saline Delivered: 101.0 ml Contrast bolus optimized for the pulmonary arteries. Not diagnostic for the aorta. RENAL FUNCTION: Creatinine - 0.64 BUN=8 RADIATION DOSE: CT Rad equipment meets quality standard of care and radiation dose reduction techniq ues were employed. CTDIvol: 5.6 - 15.0 mGy. DLP: 575 mGy-cm. . LIMITATIONS: None. FINDINGS: LUNGS AND PLEURA: Focal pleural based 9-10.0 mm ground-glass opacity superior segment of the right lower lobe, axial image 20, series 4 and sagittal image 24, series 605. Small pleural base d nodularity anterior aspect of the right upper lobe, axial image 19, series 4. No pneumothorax or p leural effusion. The central airways are clear. AORTA AND GREAT VESSELS: Bovine aortic arch, normal anatomic variant. No aneurysm. Contrast bolus not optimized for the aorta. HEART: No pericardial effusion. No significant coronary artery calcifications. PULMONARY ARTERIES: No emboli visualized in the main pulmonary arteries or the segmental branches. HILAR AND MEDIASTINAL STRUCTURES: No identified masses or abnormal nodes. HARDWARE: None in the chest. UPPER ABDOMEN: No significant findings. Limited exam. THYROID AND OTHER SOFT TISSUES: Prominent bilateral axillary lymph nodes. BONES: No acute or significant finding. 3D MIPS: Confirm above findings. OTHER: No other significant finding. IMPRESSION: 1. No evidence for acute pulmonary emboli. 2. Pleural based focal ground-glass opacity in the right lower lobe and pleural based nodularity in the anterior aspect of the right upper lobe. A follow-up noncontrast CT chest examination is suggest ed three months. 3. Bilateral prominent axillary lymph nodes. COMMENT: Quality ID # [id number]: Final reports with documentation of one or more dose reduction techniques (e.g., Automated exposure control, adjustment of the mA and/or kV according to patient size, use of iterative reconstruction technique) TECHNICAL DOCUMENTATION: JOB ID: [id number] 2010 [employer]- All Rights Reserved Reading location - IP/workstation name: [email or web address]
--- NOTE | 2020-08-26 17:32 | EKG REPORT ---
SEVERITY:- ABNORMAL ECG - SINUS RHYTHM CONSIDER LEFT VENTRICULAR HYPERTROPHY : Confirmed by: Keegan Navarro MD 26-Aug-2020 17:31:19
[2020-08-26] MEDS ORDERED: KETOROLAC TROMETHAMINE INJ/PF 30 MG/1 ML SDV IV ONE (19:11)
--- NOTE | 2020-08-26 20:19 | ER Document Report ---
Doctor's Note Notes: 08/26/20 21:58 Patient was signed out to me pending cta and urinalysis. He is alert and in no acute distress on my evaluation. He is complaining of pain to his bilateral calves. Patient is denying any chest pain at this time. He states that it hurts to walk. He states he has had pain there for several months. He is from [place] and is staying here with family. On my evaluation, patient has bilateral soft compartments to his calves. He has no abdominal pain to palpation. He is eating snacks in the room and drinking water. I discussed all results with the patient. He does not have a DVT or PE. I did mention he has a groundglass opacity on the CT. He denies any respiratory complaints. I will treat with azithromycin to cover any possible developing pneumonia. I did attempt to ambulate the patient and he did not want to walk because he states that his legs hurt. I did a strength exam and he has 5 out of 5 strength and sensation in his bilateral extremities. ROM is normal in lower extremities bilaterally. He is denying any back pain. I did eventually have him ambulate in the ER. I discussed all options with the patient. He states he just wants to go home. I gave him strict follow-up instructions. I also referred him to a PCP as he may need further work-up. He states that he just feels like he has [id number] in his feet. I recommended that he follow-up with PCP and gave strict return precautions. 08/26/20 22:01
[2020-08-26 20:33] VITALS: BP 148/93
== END 2020-08-26 20:33 | disposition home or self-care (01) ==
LOC: ER 13:20
DX: R07.9 Chest pain, unspecified (principal); M79.605 Pain in left leg; M79.604 Pain in right leg; F17.200 Nicotine dependence, unspecified, uncomplicated
CPT/HCPCS: 93005; 99285; 96374; 36415; 82553; 80307 ×2; 82550; 85025; 80053; 81001; 84484; 85379; 93970; 71045; 71275; 93010; J1885